=== PATIENT | male | born 1940 | race American Indian/Alaskan Native ===

== ENCOUNTER 2018-09-20 00:02 | Inpatient (IN) | payer MEDICARE ==
[2018-09-20 00:03] VITALS: BMI 25.6
--- NOTE | 2018-09-20 01:11 | ED PDOC ---
Arrival/HPI - General Chief Complaint: Wound Check Time Seen by Provider: 09/20/18 00:04 Historian: Patient - History of Present Illness Narrative History of Present Illness (Text): 09/20/18 00:45 78 year old M with a pmh of neuropathy, diabetes and stroke (4yrs ago) presents with cc of infection on great left toe w/ foul odor since tonight. 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 Avila has been monitoring the dorsal side of his great left toe for a non healing wound. Patient denies any fever or pain on his left toe. Dr. Lopes is his PCP Time/Duration: 4-6 hours Symptom Onset: Sudden Symptom Course: Unchanged Activities at Onset: Light Context: Home Past Medical History - Provider Review Nursing Documentation Reviewed: Yes - Infectious Disease Hx of Infectious Diseases: None - Tetanus Immunization Tetanus Immunization: Unknown - Cardiac Hx Hypertension: Yes - Pulmonary Hx Respiratory Disorders: No - Neurological HX Cerebrovascular Accident: Yes Other/Comment: right hand weakness - HEENT Hx Blind: Yes (right eye) - Renal Hx Renal Disorder: No - Endocrine/Metabolic Hx Diabetes Mellitus Type 2: Yes - Hematological/Oncological Hx Blood Disorders: No - Integumentary Hx Dermatological Disorder: No - Musculoskeletal/Rheumatological Hx Arthritis: Yes - Gastrointestinal Hx Gastrointestinal Disorders: No - Genitourinary/Gynecological Hx Prostate Cancer: Yes (seed implantaion) - Psychiatric Hx Psychophysiologic Disorder: No Hx Substance Use: Yes (alcohol) - Anesthesia Hx Anesthesia: Yes Hx Anesthesia Reactions: No Hx Malignant Hyperthermia: No - Suicidal Assessment Feels Threatened In Home Enviroment: No Family/Social History - Physician Review Nursing Documentation Reviewed: Yes Family/Social History: Unknown Family HX Smoking Status: Never Smoked Hx Alcohol Use: Yes Hx Substance Use: Yes (alcohol) Allergies/Home Meds Allergies/Adverse Reactions: Allergies No Known Allergies Allergy (Verified 09/20/18 00:05) Home Medications: Home Meds Medication Instructions Recorded Confirmed Celecoxib [celeBREX] 200 mg PO DAILY 11/30/14 09/20/18 Acetaminophen [Tylenol] 650 mg PO Q6H PRN 12/05/14 09/20/18 Aspirin 325 mg PO DAILY 12/05/14 09/20/18 Atorvastatin Calcium [Lipitor] 40 mg PO HS 12/05/14 09/20/18 Meclizine [Meclizine*] 25 mg PO Q8 PRN 12/05/14 09/20/18 amLODIPine [Norvasc] 2.5 mg PO DAILY 12/05/14 09/20/18 metFORMIN [glucOPHAGE] 500 mg PO BID 12/05/14 09/20/18 Review of Systems - Physician Review All systems were reviewed & negative as marked: Yes - Review of Systems Constitutional: Normal. absent: Fevers Eyes: Normal ENT: Normal Respiratory: Normal Cardiovascular: Normal Gastrointestinal: Normal Genitourinary Male: Normal Musculoskeletal: Joint Swelling (L. foot), Other (infection on left toe) Skin: Normal Neurological: Normal Endocrine: Normal Hemo/Lymphatic: Normal Psychiatric: Normal Physical Exam Vital Signs Reviewed: Yes Vital Signs Temp Pulse Resp BP Pulse Ox 09/20/18 00:10 97.7 F 91 H 16 151/79 H 98 Temperature: Afebrile Blood Pressure: Hypertensive Pulse: Tachycardic Respiratory Rate: Normal Appearance: Positive for: Well-Appearing, Non-Toxic, Comfortable Pain Distress: Mild Mental Status: Positive for: Alert and Oriented X 3 - Systems Exam Head: Present: Atraumatic, Normocephalic Pupils: Present: PERRL Extroacular Muscles: Present: EOMI Conjunctiva: Present: Normal Mouth: Present: Moist Mucous Membranes Neck: Present: Normal Range of Motion Respiratory/Chest: Present: Clear to Auscultation, Good Air Exchange. No: Respiratory Distress, Accessory Muscle Use Cardiovascular: Present: Regular Rate and Rhythm, Normal S1, S2. No: Murmurs Abdomen: No: Tenderness, Distention, Peritoneal Signs Back: Present: Normal Inspection Upper Extremity: Present: Normal Inspection. No: Cyanosis, Edema Lower Extremity: Present: Edema (Edematous swelling on L. foot), Other (Discolor of dorsum of L. great toe w/ open wound) Neurological: Present: GCS=15, Speech Normal Skin: Present: Warm, Dry. No: Rashes Psychiatric: Present: Alert, Oriented x 3, Normal Insight, Normal Concentration Medical Decision Making ED Course and Treatment: 09/20/18 01:00 Impression: 78 year old M presents with cc of infection of great left toe w/ foul odor since tonight Differential Diagnosis included but are not limited to: -- Cellulitis -- Toe abscess Plan: -- Labs -- Reassess and disposition Prior Visits: Notes and results from previous visits were reviewed. Progress Notes: - Scribe Statement The provider has reviewed the documentation as recorded by the Janet Ceballos All medical record entries made by the Scribe were at my direction and personally dictated by me. I have reviewed the chart and agree that the record accurately reflects my personal performance of the history, physical exam, medical decision making, and the department course for this patient. I have also personally directed, reviewed, and agree with the discharge instructions and disposition. Disposition/Present on Arrival - Present on Arrival Any Indicators Present on Arrival: No History of DVT/PE: No History of Uncontrolled Diabetes: Yes Urinary Catheter: No History of Decub. Ulcer: No History Surgical Site Infection Following: None - Disposition Have Diagnosis and Disposition been Completed?: Yes Diagnosis: Type 2 diabetes, controlled, with cellulitis of toe Disposition: HOSPITALIZED Disposition Time: 03:10 Patient Plan: Observation Condition: STABLE Discharge Instructions (ExitCare): Cellulitis (ED) Referrals: Diomedes Lopes, [Primary Care Provider] - Follow up with primary Forms: [employer]
[2018-09-20 01:52] LABS: HEMOGLOBIN 14.1 g/dL (14.0-18.0); MEAN CELL VOLUME 92.8 fl (80.0-105.0); MEAN CORPUSCULAR HEMOGLOBIN 30.6 pg (25.0-35.0); MEAN CORPUSCULAR HGB CONC 32.9 g/dl (31.0-37.0); MEAN PLATELET VOLUME 10.8 fl (7.0-11.0); RBC 4.61 10^6/uL (3.5-6.1); RED CELL DISTRIBUTION WIDTH 14.3 % (11.5-14.5); WHITE BLOOD COUNT 5.1 10^3/uL (4.5-11.0)
[2018-09-20 02:04] LABS: ALBUMIN 4.2 g/dL (3.0-4.8); CALCIUM 9.3 mg/dL (8.4-10.5)
[2018-09-20] MEDS ORDERED: Sodium Chloride 0.9% 500 ML IV STA (02:50)
[2018-09-20] MEDS ORDERED: Piperacillin/Tazobact 2.25gm 2.25 GM/100 ML BAG IVPB STA (02:51)
[2018-09-20] MEDS ORDERED: Vancomycin 500mg in NS 500 MG/100 ML BAG IVPB STA (02:52)
[2018-09-20 06:16] VITALS: RESP 20
[2018-09-20 08:23] LABS: BASO # 0.03 K/mm3 (0.0-2.0); BASO % 0.7 % (0.0-3.0); EOS # 0.2 (0.0-0.7); EOS % 3.7 % (1.5-5.0); HEMOGLOBIN 13.8 g/dL (14.0-18.0); LYMPH # 1.3 (1.2-3.4); LYMPH % 27.6 % (22.0-35.0); MEAN CORPUSCULAR HEMOGLOBIN 30.3 pg (25.0-35.0); MEAN CORPUSCULAR HGB CONC 33.3 g/dl (31.0-37.0); MEAN PLATELET VOLUME 10.6 fl (7.0-11.0); MONO # 0.6 (0.1-0.6); MONO % 13.3 % (1.0-6.0); RBC 4.55 10^6/uL (3.5-6.1); RED CELL DISTRIBUTION WIDTH 14.3 % (11.5-14.5); WHITE BLOOD COUNT 4.6 10^3/uL (4.5-11.0)
[2018-09-20 08:39] LABS: ALB/GLOB RATIO 1.1 (1.1-1.8); ALBUMIN 4.2 g/dL (3.0-4.8); CALCIUM 9.1 mg/dL (8.4-10.5)
--- NOTE | 2018-09-20 09:03 | CP.PCM.CON ---
History of Present Illness - History of Present Illness History of Present Illness: Podiatry consult note - Drs. Avila/Pierre 78M with pmhx of diabetes, arthritis, and peripheral neuropathy known to Dr. Avila seen and evaluated at bedside with Dr. Jay for left hallux ulceration and abrasion. States that he sees Dr. Avila at his home. States that he noticed he bumped his toe a few days ago and that it became foul smelling with some drainage coming from the wound. Denies pain to the area. Denies n/v/f/c/sob/cp today and has no other pedal complaints. PMHx: above All: NKDA Past Patient History - Infectious Disease Hx of Infectious Diseases: None - Tetanus Immunizations Tetanus Immunization: Unknown - Past Medical History & Family History Past Medical History?: Yes - Past Social History Smoking Status: Never Smoked - CARDIAC Hx Hypertension: Yes - PULMONARY Hx Respiratory Disorders: No - NEUROLOGICAL HX Cerebrovascular Accident: Yes Other/Comment: right hand weakness - HEENT Hx Blind: Yes (right eye) - RENAL Hx Chronic Kidney Disease: No - ENDOCRINE/METABOLIC Hx Diabetes Mellitus Type 2: Yes - HEMATOLOGICAL/ONCOLOGICAL Hx Blood Disorders: No - INTEGUMENTARY Hx Dermatological Problems: No - MUSCULOSKELETAL/RHEUMATOLOGICAL Hx Falls: No - GASTROINTESTINAL Hx Gastrointestinal Disorders: No - GENITOURINARY/GYNECOLOGICAL Hx Prostate Cancer: Yes (seed implantaion) - PSYCHIATRIC Hx Psychophysiologic Disorder: No Hx Substance Use: Yes (alcohol) - SURGICAL HISTORY Hx Surgeries: (prostate seeds , eye surgery both eyes) - ANESTHESIA Hx Anesthesia: Yes Hx Anesthesia Reactions: No Hx Malignant Hyperthermia: No Meds Allergies/Adverse Reactions: Allergies Allergy/AdvReac Type Severity Reaction Status Date / Time No Known Allergies Allergy Verified 09/20/18 00:05 - Medications Medications: Current Medications Acetaminophen (Tylenol 325mg Tab) 650 mg PO Q6H PRN PRN Reason: Pain, moderate (4-7) Amlodipine Besylate (Norvasc) 2.5 mg PO DAILY [facility] Aspirin (Ecotrin) 325 mg PO DAILY [facility] Atorvastatin Calcium (Lipitor) 40 mg PO HS [facility] Furosemide (Lasix) 40 mg IVP DAILY [facility] Metformin HCl (Glucophage) 500 mg PO BID [facility] Physical Exam - Constitutional Appears: Non-toxic - Head Exam Head Exam: ATRAUMATIC - Extremities Exam Additional comments: LLE focused exam VASC: DP and PT pulses faintly palpable; cap refill <3 seconds to all digits; temp gradient wnl; pedal hairgrowth absent; mild nonpitting edema noted to LE DERM: abrasion noted to the dorsal aspect of the hallux, no drainage appreciated, no pus or streaking, no depth, stable; healed ulceration present at plantar aspect of hallux, no openings, no drainage or fluctuance noted, no cellulitis or streaking, stable ORTHO: no pain on palpation of hallux wounds, arthritic contractures noted NEURO: gross and protective sensation diminished - Neurological Exam Neurological exam: Alert, Oriented x3 - Psychiatric Exam Psychiatric exam: Normal Affect, Normal Mood Results - Vital Signs Recent Vital Signs: Last Vital Signs Temp 98.3 F 09/20/18 07:30 Pulse 88 09/20/18 07:30 Resp 20 09/20/18 07:30 BP 156/83 H 09/20/18 07:30 Pulse Ox 97 09/20/18 07:30 - Labs Result Diagrams: 09/20/18 08:10 09/20/18 08:10 Labs: Laboratory Results - last 24 hr 09/20/18 09/20/18 09/20/18 01:19 01:19 07:15 WBC 5.1 RBC 4.61 Hgb 14.1 Hct 42.8 MCV 92.8 MCH 30.6 MCHC 32.9 RDW 14.3 Plt Count 222 MPV 10.8 Neut % (Auto) Lymph % (Auto) [place] % (Auto) Eos % (Auto) Baso % (Auto) Lymph # (Auto) [place] # (Auto) Eos # (Auto) Baso # (Auto) Absolute Neuts (auto) Sodium 140 Potassium 4.3 Chloride 100 Carbon Dioxide 30 Anion Gap 14 BUN 32 H Creatinine 1.8 H Est GFR ( Amer) 44 Est GFR (Non-Af Amer) 37 POC Glucose (mg/dL) 80 Random Glucose 101 Calcium 9.3 Total Bilirubin 0.5 AST 29 ALT 12 Alkaline Phosphatase 70 Total Protein 8.2 Albumin 4.2 Globulin 4.0 Albumin/Globulin Ratio 1.0 L 09/20/18 09/20/18 08:10 08:10 WBC 4.6 RBC 4.55 Hgb 13.8 L Hct 41.4 L MCV 91.0 MCH 30.3 MCHC 33.3 RDW 14.3 Plt Count 197 MPV 10.6 Neut % (Auto) 54.7 Lymph % (Auto) 27.6 [place] % (Auto) 13.3 H Eos % (Auto) 3.7 Baso % (Auto) 0.7 Lymph # (Auto) 1.3 [place] # (Auto) 0.6 Eos # (Auto) 0.2 Baso # (Auto) 0.03 Absolute Neuts (auto) 2.52 Sodium 141 Potassium 3.8 Chloride 102 Carbon Dioxide 31 Anion Gap 11 BUN 28 H Creatinine 1.9 H Est GFR ( Amer) 42 Est GFR (Non-Af Amer) 34 POC Glucose (mg/dL) Random Glucose 84 Calcium 9.1 Total Bilirubin 0.4 AST 23 ALT 11 Alkaline Phosphatase 74 Total Protein 7.9 Albumin 4.2 Globulin 3.7 Albumin/Globulin Ratio 1.1 Assessment & Plan - Assessment and Plan (Free Text) Assessment: 78M with left hallux 1) dorsal abrasion, stable 2) plantar healed ulceration Plan: Patient seen and evaluated with Dr. Pierre RODRIGUEZ, absent leukocytosis X-ray reviewed - arthritic changes noted, no bony erosions appreciated MRI left foot ordered Arterial duplex b/l ordered Foam dressing applied to dorsal abrasion Aquaphor ordered for xerosis Will following imaging and studies Thank you for the consult, will continue to follow - Date & Time Date: 09/20/18 Time: 09:09
[2018-09-20] MEDS: Aspirin 325 mg EC Tablets PO SCH (09:52)
[2018-09-20] MEDS: Petrolatum-Mineral Oil Oint (100gm) TOP SCH ×3 (10:27→21:39)
--- NOTE | 2018-09-20 11:08 | RAD ---
Date of service: 09/20/2018 PROCEDURE: Left Foot Radiographs. HISTORY: pain/infection great toe/foot COMPARISON: None. TECHNIQUE: 3 views obtained. FINDINGS: BONES: Normal. No fracture. No evidence of osteomyelitis JOINTS: Normal. SOFT TISSUES: Normal. OTHER FINDINGS: None. IMPRESSION: No evidence of osteomyelitis
--- NOTE | 2018-09-20 12:11 | CP.PCM.CON ---
History of Present Illness - History of Present Illness History of Present Illness: PGY-[address] Asif's service 78 yo male with PMH of diabetes, diabetic neuropathy, HTN, osteoarthritis and stroke (4yrs ago) presented with infection on great left toe with foul odor. 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 Avila has been monitoring the dorsal side of his great left toe for a non healing wound. Patient states that he recently had blood work done by his PMD and was told his thyroid level was abnormal. Patient reports dry skin but denies any chest pain, palpitation, sob, abd pain, fatigue, headache, dizziness, cold or heat intolerance. Patient denies any fever or pain on his left toe. He states his diabetes is controlled with metformin 500mg daily. 12 point ROS negative except at stated. 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 allergy: NKDA Review of Systems - Review of Systems All systems: reviewed and no additional remarkable complaints except Past Patient History - Infectious Disease Hx of Infectious Diseases: None - Tetanus Immunizations Tetanus Immunization: Unknown - Past Medical History & Family History Past Medical History?: Yes - Past Social History Smoking Status: Never Smoked - CARDIAC Hx Hypertension: Yes - PULMONARY Hx Respiratory Disorders: No - NEUROLOGICAL HX Cerebrovascular Accident: Yes Other/Comment: right hand weakness - HEENT Hx Blind: Yes (right eye) - RENAL Hx Chronic Kidney Disease: No - ENDOCRINE/METABOLIC Hx Diabetes Mellitus Type 2: Yes - HEMATOLOGICAL/ONCOLOGICAL Hx Blood Disorders: No - INTEGUMENTARY Hx Dermatological Problems: No - MUSCULOSKELETAL/RHEUMATOLOGICAL Hx Falls: No - GASTROINTESTINAL Hx Gastrointestinal Disorders: No - GENITOURINARY/GYNECOLOGICAL Hx Prostate Cancer: Yes (seed implantaion) - PSYCHIATRIC Hx Psychophysiologic Disorder: No Hx Substance Use: Yes (alcohol) - SURGICAL HISTORY Hx Surgeries: (prostate seeds , eye surgery both eyes) - ANESTHESIA Hx Anesthesia: Yes Hx Anesthesia Reactions: No Hx Malignant Hyperthermia: No Meds Allergies/Adverse Reactions: Allergies Allergy/AdvReac Type Severity Reaction Status Date / Time No Known Allergies Allergy Verified 09/20/18 00:05 - Medications Medications: Current Medications Acetaminophen (Tylenol 325mg Tab) 650 mg PO Q6H PRN PRN Reason: Pain, moderate (4-7) Amlodipine Besylate (Norvasc) 2.5 mg PO DAILY [facility] Last Admin: 09/20/18 09:53 Dose: 2.5 mg Aspirin (Ecotrin) 325 mg PO DAILY [facility] Last Admin: 09/20/18 09:52 Dose: 325 mg Atorvastatin Calcium (Lipitor) 40 mg PO [facility] Furosemide (Lasix) 40 mg IVP DAILY [facility] Last Admin: 09/20/18 09:53 Dose: 40 mg Metformin HCl (Glucophage) 500 mg PO BID [facility] Last Admin: 09/20/18 09:53 Dose: 500 mg Multi-Ingredient Ointment (Hydrophor Oint) 0 gm TOP Q6H [facility] Last Admin: 09/20/18 10:27 Dose: 1 applic Physical Exam - Constitutional Appears: Well, No Acute Distress - Head Exam Head Exam: ATRAUMATIC, NORMAL INSPECTION, NORMOCEPHALIC - Eye Exam Eye Exam: EOMI, PERRL - ENT Exam ENT Exam: Mucous Membranes Moist - Neck Exam Neck exam: Positive for: Full Rom, Normal Inspection. Negative for: Tenderness, Thyromegaly - Respiratory Exam Respiratory Exam: Clear to Auscultation Bilateral, NORMAL BREATHING PATTERN. absent: Chest Wall Tenderness, Decreased Breath Sounds, Rales, Rhonchi, Wheezes, Respiratory Distress - Cardiovascular Exam Cardiovascular Exam: REGULAR RHYTHM, +S1, +S2. absent: Bradycardia, Tachycardia, Diastolic murmur, Systolic Murmur - GI/Abdominal Exam GI & Abdominal Exam: Normal Bowel Sounds, Soft. absent: Diminished Bowel Sounds, Distended, Firm, Tenderness - Neurological Exam Neurological exam: Alert, Oriented x3 - Psychiatric Exam Psychiatric exam: Normal Affect, Normal Mood Results - Vital Signs Recent Vital Signs: Last Vital Signs Temp 98.3 F 09/20/18 07:30 Pulse 88 09/20/18 07:30 Resp 20 09/20/18 07:30 BP 156/83 H 09/20/18 09:53 Pulse Ox 97 09/20/18 07:30 - Labs Result Diagrams: 09/21/18 06:00 09/21/18 06:00 Labs: Laboratory Results - last 24 hr 09/20/18 09/20/18 09/20/18 01:19 01:19 07:15 WBC 5.1 RBC 4.61 Hgb 14.1 Hct 42.8 MCV 92.8 MCH 30.6 MCHC 32.9 RDW 14.3 Plt Count 222 MPV 10.8 Neut % (Auto) Lymph % (Auto) [place] % (Auto) Eos % (Auto) Baso % (Auto) Lymph # (Auto) [place] # (Auto) Eos # (Auto) Baso # (Auto) Absolute Neuts (auto) Sodium 140 Potassium 4.3 Chloride 100 Carbon Dioxide 30 Anion Gap 14 BUN 32 H Creatinine 1.8 H Est GFR ( Amer) 44 Est GFR (Non-Af Amer) 37 POC Glucose (mg/dL) 80 Random Glucose 101 Calcium 9.3 Total Bilirubin 0.5 AST 29 ALT 12 Alkaline Phosphatase 70 Total Protein 8.2 Albumin 4.2 Globulin 4.0 Albumin/Globulin Ratio 1.0 L 09/20/18 09/20/18 09/20/18 08:10 08:10 12:02 WBC 4.6 RBC 4.55 Hgb 13.8 L Hct 41.4 L MCV 91.0 MCH 30.3 MCHC 33.3 RDW 14.3 Plt Count 197 MPV 10.6 Neut % (Auto) 54.7 Lymph % (Auto) 27.6 [place] % (Auto) 13.3 H Eos % (Auto) 3.7 Baso % (Auto) 0.7 Lymph # (Auto) 1.3 [place] # (Auto) 0.6 Eos # (Auto) 0.2 Baso # (Auto) 0.03 Absolute Neuts (auto) 2.52 Sodium 141 Potassium 3.8 Chloride 102 Carbon Dioxide 31 Anion Gap 11 BUN 28 H Creatinine 1.9 H Est GFR ( Amer) 42 Est GFR (Non-Af Amer) 34 POC Glucose (mg/dL) 93 Random Glucose 84 Calcium 9.1 Total Bilirubin 0.4 AST 23 ALT 11 Alkaline Phosphatase 74 Total Protein 7.9 Albumin 4.2 Globulin 3.7 Albumin/Globulin Ratio 1.1 Assessment & Plan - Assessment and Plan (Free Text) Assessment: 78 yo male with PMH of diabetes, diabetic neuropathy, HTN, osteoarthritis and stroke (4yrs ago) presented with infection on great left toe, endocrinology consulted for possible thyroid disorder. Currently patient has no complaints. Will will order TSH and T4. We will add medications if his levels are abnormal. Case discussed with attending, Dr. Asif
[2018-09-20 13:50] LABS: FREE T4 1.54 ng/dL (0.78-2.19)
--- NOTE | 2018-09-20 17:13 | CARD ---
APPROVED REPORT Date of service: 09/20/2018 EKG Measurement Heart [id number] <Conclusion> Sinus rhythm with 1st degree AV block Right bundle branch block Abnormal ECG
--- NOTE | 2018-09-20 19:33 | CON ---
DATE OF CONSULTATION: 09/20/2018 ENDOCRINOLOGY CONSULTATION ROOM: 368. HISTORY OF PRESENT ILLNESS: This is a 78-year-old male with known history of type 2 diabetes and underlying polyneuropathy, presenting here with a left big toe or hallux infection and associated cellulitis and is now being referred for endocrine evaluation of a possible thyroid dysfunction as the patient alleges that he was told that he has some kind of thyroid condition, but is currently not on any thyroid medications as noted. PAST MEDICAL HISTORY As mentioned above, history of type 2 diabetes on metformin given as 500 mg b.i.d., history of hypertension and dyslipidemia, history of diabetic retinopathy and polyneuropathy with occasional painful paresthesias nocturnally. He also has diabetic nephropathy with underlying chronic kidney disease as noted. History of coronary artery disease and peripheral arterial disease and vasculopathy. He also has a previous cerebrovascular disease with no apparent residual weakness as noted. FAMILY HISTORY: Positive for diabetes and hypertension. SOCIAL HISTORY: The patient has a supportive family. No known substance use. REVIEW OF SYSTEMS: Admits to generalized body weakness with easy fatigability and tiredness and suboptimal energy level. Also admits to bifrontal headaches with occasional visual blurring as noted. No chest pains or palpitations or PND since oral intake has been variable with nausea and dyspepsia and vague upper abdominal pains. No recent alterations of bowel and urinary patterns. PHYSICAL EXAMINATION: GENERAL: This is an average built male, in no apparent distress. VITAL SIGNS: Blood pressure of 150/90, pulse of 100 beats per minute regular, temperature 98, respirations 20, height is 5 feet 8 inches, weight is 185 pounds. HEENT: Head, normocephalic. Eyes, anicteric with pink conjunctivae. Fundoscopy not possible at this time. Ears, nose, and throat, otherwise normal. NECK: Supple. Thyroid gland is normal size. No carotid bruits or cervical adenopathy. CARDIOPULMONARY: Some adynamic precordium. S1, S2 are rapid and regular. LUNGS: Clear to auscultation. ABDOMEN: Flat, soft with positive bowel sounds. EXTREMITIES: There is a nonhealing left hallux ulceration with a bloody exudate and a malodorous smell as noted. Pulses are diminished peripherally. LABORATORY DATA: His chemistries showed a BUN of 28, sodium 141, potassium 3.8, chloride 102, CO2 of 31, glucose 93 and creatinine 1.9. His TSH has been reported as 3.90 with a free T4 of 1.54. ASSESSMENT: This is a 78-year-old male with subclinical hypothyroidism and really remains clinically euthyroid and with his advanced age it is quite common to see this kind of abnormal thyroid indices. He most likely has underlying autoimmune thyroiditis with no overt palpable thyroid nodules or thyromegaly at this time. He also has type 2 diabetes on oral hypoglycemic therapy and would be quite concerned that his GFR is now close to 30 and is actually reported as 34, but is now close to 30, and again with his advanced age and elevated creatinine levels with impaired GFRs, it would be cautious to give metformin therapy at this time. He also has diabetic microvascular complications of retinopathy, polyneuropathy and nephropathy with underlying chronic kidney disease. Moreover, he also has diabetic macrovascular complications of cerebrovascular disease, coronary artery disease, and peripheral arterial disease and vasculopathy with a nonhealing left hallux ulceration as noted with underlying cellulitis otherwise. PLAN OF MANAGEMENT: We will hold off the initiation of levothyroxine replacement therapy at this time considering that this is only a very mild subclinical hypothyroid condition, and it is quite common in patients with advanced age as noted. However, we will repeat a TSH for tomorrow morning and a total T4, which will give us more guidance as to the possible severity of his underlying hypothyroid condition. We will obtain a thyroid peroxidase and thyroglobulin antibody to confirm and indicate the presence of thyroid autoimmunity, and if it is positive, then we will consider the addition of the aforementioned as indicated. We will follow this. Ginette Asif MD
--- NOTE | 2018-09-20 19:35 | HP ---
DATE OF EXAM: 09/20/2018 HISTORY OF PRESENT ILLNESS: I know him very well from house calls, it is very difficult for him to walk and to get out due to his arthritis and contractures. Apparently, he has a toe issue. He is a 78-year-old man who is presently with a left first toe callus and possible ulcer infection with foul odor. He has been monitored by the fruit harvest worker from the outpatient for nonhealing wound. There is no pain. PAST MEDICAL HISTORY: He has neuropathy, diabetes, CVA, osteoarthritis, toe infections, ulcers, and hypertension. He has right hand weakness and contracture. He has blindness in the right eye. He has got diabetes. He has arthritis. He has a seed implantation for prostate cancer. SOCIAL HISTORY: He does drink some alcohol every now and then. No smoking. Occasional alcohol. No drugs. FAMILY HISTORY: No known family history. ALLERGIES: NO KNOWN DRUG ALLERGIES. MEDICATIONS: Celebrex, Tylenol, aspirin, Lipitor, meclizine, Norvasc, and Glucophage. REVIEW OF SYSTEMS: No acute vision or hearing changes. No sore throat. No chest pain or palpitations. No shortness of breath or cough. No abdominal pain, nausea, vomiting, constipation, or diarrhea. No problems urinating. The left first toe has got a little bit of infection. He said he banged it. Otherwise, the skin is okay except for the left first toe. He has got some peripheral neuropathy. He has difficulty with contractures of his hand. PHYSICAL EXAMINATION: VITAL SIGNS: He has a 97.7 temperature, 91 pulse, 16 respiratory rate, 151/79 blood pressure, and 90% O2 sat. GENERAL: He is well-appearing, comfortable, alert, and oriented x3. HEENT: Head; atraumatic and normocephalic. Extraocular muscles are intact. Pupils are equal and reactive to light. Throat is moist. NECK: Supple. HEART: Regular rate. Normal S1 and S2. LUNGS: Decreased breath sounds, but clear to auscultation bilaterally. ABDOMEN: Soft and nontender. Positive bowel sounds. No guarding. No rebound. No CVA tenderness. EXTREMITIES: He has got some contractures of his arms and his legs, difficult for him to get around. He has a left great toe open wound with also callus. NEUROLOGIC: GCS is 15. Cranial nerves II through XII grossly intact. Alert and oriented x3. SKIN: Otherwise intact except for the left first toe. LYMPHS: Thyroid midline. No palpable appreciable lymphadenopathy. ASSESSMENT AND PLAN: He has some thyroid questions. He wants to talk to the welder tech. He will see a preventive maintenance engineer, it has been difficult for him to get out of the house due to his physical ability, not be able to walk, it is difficult for him, so I called the preventive maintenance engineer Infectious Disease for IV antibiotics, Podiatry, I will change it to an inpatient. He is going to need to be a longer than two overnights. He has got odor and some ulcer of the left first toe and is here for a left first toe ulcer chronic, nonhealing; diabetes; osteoarthritis; hypertension; and he has got some thyroid issues. Diomedes Lopes DO [employer]
--- NOTE | 2018-09-20 19:36 | CON ---
DATE OF CONSULTATION: 09/20/2018 CARDIOLOGY CONSULTATION HISTORY: The patient is a 78-year-old male, who I was asked to do a cardiac evaluation. PAST MEDICAL HISTORY: The patient's past medical history is notable for hypertension, diabetes mellitus, as well as hypercholesterolemia, who presented with cellulitis of the lower extremities. The patient has had visual disability for a while now. He denies previous history of cardiac disease. No history of myocardial infarction. No angina. SOCIAL HISTORY: The patient denies smoking. REVIEW OF SYSTEMS: Fourteen-point review of systems is reviewed in detail. The patient denies angina, denies shortness of breath. He does admit to occasional pedal edema. No orthopnea. No PND. No previous myocardial infarction. No family history for CAD. PHYSICAL EXAMINATION: VITAL SIGNS: Blood pressure is 156/83, the heart rate is in the 80s. NECK: Negative JVD. LUNGS: Without rales. CARDIAC: Heart rate S1, S2. EXTREMITIES: Trace edema in the lower extremities bilaterally. EKG is not available. LABORATORY DATA: Hemoglobin is 13.8. BUN and creatinine are 28 and 1.9. IMPRESSION: 1. Cellulitis of the lower extremities. 2. Diabetes mellitus. 3. Hypertension. 4. Hypercholesterolemia. 5. Renal insufficiency. 6. Visual disability. PLAN: Given these findings, we will obtain an EKG. In addition, we will obtain an echocardiogram to evaluate his LV function. Augusto Rodriguez MD
--- NOTE | 2018-09-20 19:50 | US ---
PROCEDURE: Lower extremity JOSE exam HISTORY: Peripheral vascular disease with pain and ulceration. Diabetes.. PHYSICIAN(S): Augusto Owen MD. FINDINGS: The resting JOSE's are normal: right, 1.01and left, 1.08. The brachial systolic pressures are symmetric. The high thigh pressures and waveforms are relatively normal. The calf PVR waveforms augment normally. No significant gradients are noted across the thighs. The ankle and metatarsal waveforms are relatively normal and symmetric. No significant pressure gradients are noted across the lower legs. IMPRESSION: 1. Normal JOSE and PVR examination at rest.
[2018-09-21] MEDS: Petrolatum-Mineral Oil Oint (100gm) TOP SCH ×2 (04:22→11:45)
[2018-09-21 06:54] LABS: HEMOGLOBIN 13.3 g/dL (14.0-18.0); MEAN CELL VOLUME 91.1 fl (80.0-105.0); MEAN CORPUSCULAR HEMOGLOBIN 29.7 pg (25.0-35.0); MEAN CORPUSCULAR HGB CONC 32.6 g/dl (31.0-37.0); MEAN PLATELET VOLUME 10.9 fl (7.0-11.0); RBC 4.48 10^6/uL (3.5-6.1); RED CELL DISTRIBUTION WIDTH 14.2 % (11.5-14.5); WHITE BLOOD COUNT 4.3 10^3/uL (4.5-11.0)
[2018-09-21 07:18] LABS: ALBUMIN 3.7 g/dL (3.0-4.8); CALCIUM 9.1 mg/dL (8.4-10.5)
[2018-09-21 08:15] VITALS: PULSE 78; TEMP 97.5; O2SAT 95
--- NOTE | 2018-09-21 08:44 | CP.PCM.PN ---
Subjective - Date & Time of Evaluation Date of Evaluation: 09/21/18 Time of Evaluation: 08:38 - Subjective Subjective: Podiatry progress note - Drs. Avila/Pierre 78M seen and evaluated at bedside this AM with Dr. Jay. Resting comfortably, denies acute events overnight. Denies pain to LE. Denies n/v/f/c/sob/cp. Dressing appears clean and dry. Objective - Vital Signs/Intake and Output Vital Signs (last 24 hours): Temp Pulse Resp BP Pulse Ox 97.5 F L 78 20 114/69 95 09/21/18 08:14 09/21/18 08:14 09/21/18 08:14 09/21/18 08:14 09/21/18 08:14 Intake and Output: 09/21/18 09/21/18 06:59 18:59 Intake Total 1560 Output Total 750 Balance 810 - Medications Medications: Current Medications Acetaminophen (Tylenol 325mg Tab) 650 mg PO Q6H PRN PRN Reason: Pain, moderate (4-7) Amlodipine Besylate (Norvasc) 2.5 mg PO DAILY [facility] Last Admin: 09/20/18 09:53 Dose: 2.5 mg Aspirin (Ecotrin) 325 mg PO DAILY [facility] Last Admin: 09/20/18 09:52 Dose: 325 mg Atorvastatin Calcium (Lipitor) 40 mg PO HS [facility] Last Admin: 09/20/18 21:38 Dose: 40 mg Furosemide (Lasix) 40 mg IVP DAILY [facility] Last Admin: 09/20/18 09:53 Dose: 40 mg Ceftaroline Fosamil 400 mg/ (Sodium Chloride) 100 mls @ 100 mls/hr IVPB Q12 [facility]; Protocol Stop: 09/28/18 22:01 Last Admin: 09/20/18 21:38 Dose: 100 mls/hr Multi-Ingredient Ointment (Hydrophor Oint) 0 gm TOP Q6H [facility] Last Admin: 09/21/18 04:22 Dose: Not Given Repaglinide (Prandin) 0.5 mg PO AC [facility] Last Admin: 09/21/18 06:31 Dose: 0.5 mg - Labs Labs: 09/21/18 06:00 09/21/18 06:00 - Constitutional Appears: Non-toxic - Head Exam Head Exam: ATRAUMATIC - Extremities Exam Additional comments: LLE focused exam VASC: DP and PT pulses faintly palpable; cap refill <3 seconds to all digits; temp gradient wnl; pedal hairgrowth absent; mild nonpitting edema noted to LE DERM: abrasion noted to the dorsal aspect of the hallux, no drainage appreciated, no pus or streaking, no depth, stable; healed ulceration present at plantar aspect of hallux, no openings, no drainage or fluctuance noted, no cellulitis or streaking, stable ORTHO: no pain on palpation of hallux wounds, arthritic contractures noted NEURO: gross and protective sensation diminished - Neurological Exam Neurological Exam: Alert, Awake, Oriented x3 - Psychiatric Exam Psychiatric exam: Normal Affect Assessment and Plan - Assessment and Plan (Free Text) Assessment: 78M with left hallux 1) dorsal abrasion, stable 2) plantar healed ulceration Plan: Patient seen and evaluated with Dr. Jay VSFranchesca, absent leukocytosis X-ray reviewed - arthritic changes noted, no bony erosions appreciated MRI left foot taken - read pending Arterial duplex b/l - normal JOSE/PVR examination at rest Foam dressing applied to dorsal abrasion Nursing - please apply aquaphor to LE QD for dry skin Upon discharge will be followed by Dr. Avila at home Will continue to follow, stable from podiatry standpoint pending MRI result
--- NOTE | 2018-09-21 10:49 | CP.PCM.CON ---
<Mitchell Jc - Last Filed: 09/21/18 11:15> History of Present Illness - History of Present Illness History of Present Illness: Mitchell Jc D.O. PGY-3, Internal Medicine Resident, Infectious Disease Consultation Note 78 year old male with a PMH of DM with neuropathy, HTN, CVA with right sided deficits who presented after hitting his left toe. Infectious disease con sultation was requested for evaluation. Patient was seen and examined at bedside while resting comfortably. Patient relates how he is able to get around with a walker after his CVA and sometimes has difficulty. Patient states that he "banged" the toe against furniture very hard on accident. Since then he had a lot of pain. States that his put a bandaid on it and then the next day he noticed a foul odor from the toe and got concerned. Patient at this time states that he doesn't have as much discomfort but is worried about developing an ulcer. Denies any fevers, chills, nausea, vomiting, diarrhea, constipation, headache, SOB, or CP. Review of Systems - Review of Systems All systems: reviewed and no additional remarkable complaints except (as per HPI) Past Patient History - Infectious Disease Hx of Infectious Diseases: None - Tetanus Immunizations Tetanus Immunization: Unknown - Past Medical History & Family History Past Medical History?: Yes - Past Social History Smoking Status: Never Smoked - CARDIAC Hx Hypertension: Yes - PULMONARY Hx Respiratory Disorders: No - NEUROLOGICAL HX Cerebrovascular Accident: Yes Other/Comment: right hand weakness - HEENT Hx Blind: Yes (right eye) - RENAL Hx Chronic Kidney Disease: No - ENDOCRINE/METABOLIC Hx Diabetes Mellitus Type 2: Yes - HEMATOLOGICAL/ONCOLOGICAL Hx Blood Disorders: No - INTEGUMENTARY Hx Dermatological Problems: No - MUSCULOSKELETAL/RHEUMATOLOGICAL Hx Falls: No - GASTROINTESTINAL Hx Gastrointestinal Disorders: No - GENITOURINARY/GYNECOLOGICAL Hx Prostate Cancer: Yes (seed implantaion) - PSYCHIATRIC Hx Psychophysiologic Disorder: No Hx Substance Use: Yes (alcohol) - SURGICAL HISTORY Hx Surgeries: (prostate seeds , eye surgery both eyes) - ANESTHESIA Hx Anesthesia: Yes Hx Anesthesia Reactions: No Hx Malignant Hyperthermia: No Meds Allergies/Adverse Reactions: Allergies Allergy/AdvReac Type Severity Reaction Status Date / Time No Known Allergies Allergy Verified 09/20/18 00:05 - Medications Medications: Current Medications Acetaminophen (Tylenol 325mg Tab) 650 mg PO Q6H PRN PRN Reason: Pain, moderate (4-7) Amlodipine Besylate (Norvasc) 2.5 mg PO DAILY [facility] Last Admin: 09/20/18 09:53 Dose: 2.5 mg Aspirin (Ecotrin) 325 mg PO DAILY [facility] Last Admin: 09/20/18 09:52 Dose: 325 mg Atorvastatin Calcium (Lipitor) 40 mg PO HS [facility] Last Admin: 09/20/18 21:38 Dose: 40 mg Furosemide (Lasix) 40 mg IVP DAILY [facility] Last Admin: 09/20/18 09:53 Dose: 40 mg Ceftaroline Fosamil 400 mg/ (Sodium Chloride) 100 mls @ 100 mls/hr IVPB Q12 [facility]; Protocol Stop: 09/28/18 22:01 Last Admin: 09/20/18 21:38 Dose: 100 mls/hr Multi-Ingredient Ointment (Hydrophor Oint) 0 gm TOP Q6H [facility] Last Admin: 09/21/18 04:22 Dose: Not Given Repaglinide (Prandin) 0.5 mg PO AC [facility] Last Admin: 09/21/18 06:31 Dose: 0.5 mg Physical Exam - Constitutional Appears: Non-toxic, No Acute Distress, Chronically Ill - Head Exam Head Exam: NORMOCEPHALIC - Eye Exam Eye Exam: EOMI. absent: Scleral icterus - ENT Exam ENT Exam: Mucous Membranes Moist - Neck Exam Neck exam: Positive for: Normal Inspection - Respiratory Exam Respiratory Exam: Clear to Auscultation Bilateral. absent: Rales, Rhonchi, Wheezes - Cardiovascular Exam Cardiovascular Exam: +S1, +S2 - GI/Abdominal Exam GI & Abdominal Exam: Normal Bowel Sounds, Soft. absent: Tenderness - Extremities Exam Additional comments: left big toe with small about 5mm round excoriated skin over the inter-tarsal joint just posterior to the nail with small amount of discharge, re-covered with optifoam - Neurological Exam Neurological exam: Alert, Oriented x3 - Skin Skin Exam: Warm Results - Vital Signs Recent Vital Signs: Last Vital Signs Temp 97.5 F L 09/21/18 08:14 Pulse 78 09/21/18 08:14 Resp 20 09/21/18 08:14 BP 114/69 09/21/18 08:14 Pulse Ox 95 09/21/18 08:14 - Labs Result Diagrams: 09/21/18 06:00 09/21/18 06:00 Labs: Laboratory Results - last 24 hr 09/20/18 09/20/18 09/20/18 12:02 13:10 16:11 WBC RBC Hgb Hct MCV MCH MCHC RDW Plt Count MPV Sodium Potassium Chloride Carbon Dioxide Anion Gap BUN Creatinine Est GFR ( Amer) Est GFR (Non-Af Amer) POC Glucose (mg/dL) 93 80 Random Glucose Calcium Total Bilirubin AST ALT Alkaline Phosphatase Total Protein Albumin Globulin Albumin/Globulin Ratio Free T4 1.54 Thyroxine (T4) TSH 3rd Generation 3.90 09/20/18 09/21/18 09/21/18 21:09 01:46 02:46 WBC RBC Hgb Hct MCV MCH MCHC RDW Plt Count MPV Sodium Potassium Chloride Carbon Dioxide Anion Gap BUN Creatinine Est GFR ( Amer) Est GFR (Non-Af Amer) POC Glucose (mg/dL) 73 72 114 H Random Glucose Calcium Total Bilirubin AST ALT Alkaline Phosphatase Total Protein Albumin Globulin Albumin/Globulin Ratio Free T4 Thyroxine (T4) TSH 3rd Generation 09/21/18 09/21/18 09/21/18 06:00 06:00 06:00 WBC 4.3 L RBC 4.48 Hgb 13.3 L Hct 40.8 L MCV 91.1 MCH 29.7 MCHC 32.6 RDW 14.2 Plt Count 210 MPV 10.9 Sodium 139 Potassium 3.9 Chloride 102 Carbon Dioxide 30 Anion Gap 12 BUN 26 H Creatinine 1.8 H Est GFR ( Amer) 44 Est GFR (Non-Af Amer) 37 POC Glucose (mg/dL) Random Glucose 66 L Calcium 9.1 Total Bilirubin 0.6 AST 28 ALT 13 Alkaline Phosphatase 65 Total Protein 7.4 Albumin 3.7 Globulin 3.6 Albumin/Globulin Ratio 1.0 L Free T4 Thyroxine (T4) 9.1 TSH 3rd Generation 3.67 09/21/18 07:22 WBC RBC Hgb Hct MCV MCH MCHC RDW Plt Count MPV Sodium Potassium Chloride Carbon Dioxide Anion Gap BUN Creatinine Est GFR ( Amer) Est GFR (Non-Af Amer) POC Glucose (mg/dL) 67 Random Glucose Calcium Total Bilirubin AST ALT Alkaline Phosphatase Total Protein Albumin Globulin Albumin/Globulin Ratio Free T4 Thyroxine (T4) TSH 3rd Generation Assessment & Plan - Assessment and Plan (Free Text) Assessment: 78 year old male with a PMH of DM with neuropathy, HTN, CVA with right sided deficits who presented after hitting his left toe. Infectious disease consultation was requested for evaluation. Plan: Left toe dorsal abrasion DM with neuropathy HTN CVA with right sided deficits At high risk for infection given diabetic status Afebrile No leukocytosis BCx negative 2/2 day 1 Podiatry following, note reviewed and appreciated For foot MRI today Empirically started on ceftaroline We will follow with you Patient was seen and examined and case will be discussed with attending physician Thank you for the pleasure participating in the care of this interesting patient - Date & Time Date: 09/21/18 Time: 07:00 <Larry Rizo - Last Filed: 09/21/18 20:00> Results - Vital Signs Recent Vital Signs: Last Vital Signs Temp 97.5 F L 09/21/18 16:19 Pulse 78 09/21/18 16:19 Resp 20 09/21/18 16:19 BP 114/69 09/21/18 16:19 Pulse Ox 95 09/21/18 16:19 - Labs Result Diagrams: 09/21/18 06:00 09/21/18 06:00 Labs: Laboratory Results - last 24 hr 09/20/18 09/21/18 09/21/18 21:09 01:46 02:46 WBC RBC Hgb Hct MCV MCH MCHC RDW Plt Count MPV Sodium Potassium Chloride Carbon Dioxide Anion Gap BUN Creatinine Est GFR ( Amer) Est GFR (Non-Af Amer) POC Glucose (mg/dL) 73 72 114 H Random Glucose Hemoglobin A1c Calcium Total Bilirubin AST ALT Alkaline Phosphatase Total Protein Albumin Globulin Albumin/Globulin Ratio Thyroxine (T4) TSH 3rd Generation 09/21/18 09/21/18 09/21/18 06:00 06:00 06:00 WBC 4.3 L RBC 4.48 Hgb 13.3 L Hct 40.8 L MCV 91.1 MCH 29.7 MCHC 32.6 RDW 14.2 Plt Count 210 MPV 10.9 Sodium 139 Potassium 3.9 Chloride 102 Carbon Dioxide 30 Anion Gap 12 BUN 26 H Creatinine 1.8 H Est GFR ( Amer) 44 Est GFR (Non-Af Amer) 37 POC Glucose (mg/dL) Random Glucose 66 L Hemoglobin A1c 6.8 H Calcium 9.1 Total Bilirubin 0.6 AST 28 ALT 13 Alkaline Phosphatase 65 Total Protein 7.4 Albumin 3.7 Globulin 3.6 Albumin/Globulin Ratio 1.0 L Thyroxine (T4) TSH 3rd Generation 09/21/18 09/21/18 09/21/18 06:00 07:22 11:37 WBC RBC Hgb Hct MCV MCH MCHC RDW Plt Count MPV Sodium Potassium Chloride Carbon Dioxide Anion Gap BUN Creatinine Est GFR ( Amer) Est GFR (Non-Af Amer) POC Glucose (mg/dL) 67 75 Random Glucose Hemoglobin A1c Calcium Total Bilirubin AST ALT Alkaline Phosphatase Total Protein Albumin Globulin Albumin/Globulin Ratio Thyroxine (T4) 9.1 TSH 3rd Generation 3.67 09/21/18 16:12 WBC RBC Hgb Hct MCV MCH MCHC RDW Plt Count MPV Sodium Potassium Chloride Carbon Dioxide Anion Gap BUN Creatinine Est GFR ( Amer) Est GFR (Non-Af Amer) POC Glucose (mg/dL) 82 Random Glucose Hemoglobin A1c Calcium Total Bilirubin AST ALT Alkaline Phosphatase Total Protein Albumin Globulin Albumin/Globulin Ratio Thyroxine (T4) TSH 3rd Generation Attending/Attestation - Attestation I have personally seen and examined this patient.: Yes I have fully participated in the care of the patient.: Yes I have reviewed all pertinent clinical information: Yes
--- NOTE | 2018-09-21 11:35 | MRI ---
Date of service: 09/21/2018 PROCEDURE: MRI of the left foot without contrast HISTORY: left hallux diabetic ulceration COMPARISON: TECHNIQUE: MRI of the left foot was performed in multiple planes using multiple pulse sequences. FINDINGS: There is minimal soft tissue edema in the big toe. There is no evidence of associated osteomyelitis. There is no marrow edema. The remaining toes are also unremarkable. The metatarsals are normal. There is subcutaneous edema over the dorsum of the foot. This could represent passive edema or cellulitis. IMPRESSION: No evidence of osteomyelitis
[2018-09-21] MEDS: Aspirin 325 mg EC Tablets PO SCH (11:40)
--- NOTE | 2018-09-21 12:26 | PN ---
DATE: 09/21/2018 SUBJECTIVE: He is resting comfortably in bed. He wants his walker there, so he can get back and forth to the bathroom. He is very comfortable but did not get out of bed despite his physical limitations. He does not want to lose that strength either. He is on Ceftalin IV, Ecotrin, ointment, Lasix, Lipitor, Norvasc, Prandin, and Tylenol. The metformin was changed to Prandin due to his elevated BUN and creatinine by Endocrinology, which is reasonable. PHYSICAL EXAMINATION: VITAL SIGNS: His temperature is 97.5, pulse is 78, 114/69 blood pressure, 20 respiratory rate, 95% O2 sat on room air. HEAD: Atraumatic, normocephalic. HEART: Regular rate. LUNGS: Decreased breath sounds. ABDOMEN: Soft. EXTREMITIES: Contracted little bit, that is his baseline. His left first toe has got an ulcer on it. LABORATORY DATA: There is an MRI pending. He has a 4.3 white count, 13.3 hemoglobin, 40.8 hematocrit with 210 platelets. He has a 139 sodium, potassium 3.9, BUN 26, creatinine 1.8, which is getting better with IV fluids. GFR is 37, sugar is 67, calcium 9.1, total bili is 0.6, AST is 28, ALT is 13, alk phos 55, total protein is 7.4. TSH is 3.67. ASSESSMENT AND PLAN: He is being seen by Cardiology, Endocrinology, Podiatry. He has cellulitis of the lower extremity, diabetes, hypertension, high cholesterol, renal insufficiency, visual disability. He was sent in by Podiatry, they put him in after seeing on house call. We will continue with IV antibiotics. MRI is pending. They will let us know if it is an osteomyelitis with the length of time of IV antibiotics. We will see what the Infectious Disease has to say. Continue with aggressive treatment and care. Diomedes Lopes DO
--- NOTE | 2018-09-21 13:13 | CARD ---
APPROVED REPORT Date of service: 09/21/2018 EXAM: Two-dimensional and M-mode echocardiogram with Doppler and color Doppler. INDICATION Cardiac Disease: CAD 2D DIMENSIONS Left Atrium (2D)3.8 (1.6-4.0cm)IVSd1.1 (0.7-1.1cm) LVDd3.4 (3.9-5.9cm)PWd0.9 (0.7-1.1cm) LVDs2.3 (2.5-4.0cm)FS (%) 33.5 % LVEF (%)63.5 (>50%) M-Mode DIMENSIONS Aortic Root3.40 (2.2-3.7cm)Aortic Cusp Exc.1.60 (1.5-2.0cm) Aortic Valve AoV Peak Hbhkvprm268.0cm/Zander Peak GR.4mmHg Mitral Valve MV E Lmhsfzmr45.9cm/sMV A Hvkxztqk057.0cm/sE/A ratio0.6 TDI E/Lateral E'0.0E/Medial E'0.0 Tricuspid Valve TR Peak [id number] [id number] Peak Gr.19mmHg [id number] LEFT VENTRICLE The left ventricular function is normal. The left ventricular ejection fraction is within the normal range. RIGHT VENTRICLE The right ventricle is normal size. ATRIA The left atrium is mildly dilated. The right atrium size is normal. AORTIC VALVE The aortic valve is thickened but opens well. MITRAL VALVE The mitral valve is thickened but opens well. TRICUSPID VALVE The tricuspid valve leaflets are thickened , but open well. There is trace to mild tricuspid regurgitation. There is no pulmonary hypertension. PULMONIC VALVE The pulmonic valve is not well visualized. PERICARDIAL EFFUSION There is no pericardial effusion. <Conclusion> Limited study Good LV function Dilated LA Mild TR No pulmonary hypertension
--- NOTE | 2018-09-21 13:46 | PN ---
DATE: 09/21/2018 SUBJECTIVE: The patient is without distress. OBJECTIVE: VITAL SIGNS: Blood pressure 110/60, heart rates in the 70s. NECK: Negative JVD. LUNGS: Without rales. HEART: S1 and S2. EXTREMITIES: Without edema. LABORATORY DATA: Hemoglobin 13.3. BUN and creatinine is unchanged. Echocardiogram is pending. IMPRESSION: 1. Cellulitis. 2. Hypertension. 3. Diabetes mellitus. 4. Hypercholesterolemia. 5. Renal insufficiency. 6. Visual disability. PLAN: Given these findings, we will review the echocardiogram, I do not suspect any active cardiac disease. Augusto Rodriguez MD
[2018-09-21 16:20] VITALS: BP 114/69
[2018-09-21] MEDS ORDERED: Amoxicillin-Clav 875-125 mg Tab PO SCH (22:00)
--- NOTE | 2018-09-22 00:54 | PN ---
DATE: 09/21/2018 SUBJECTIVE: The patient is in bed, in no acute distress. The patient was seen earlier this morning in room 368 in bed, no acute distress. PHYSICAL EXAMINATION: VITAL SIGNS: Temperature of 97, blood pressure is 114/60, respiratory rate of 18. HEENT: Unremarkable. NECK: Supple. LUNGS: Decreased breath sounds. HEART: Normal S1 and S2. ABDOMEN: Soft. LABORATORY DATA: Reveals the white count is noted at 4.3, hemoglobin of 13, BUN of 26, and creatinine of 1.8. FMI of the foot is reported to be negative for osteomyelitis. ASSESSMENT AND PLAN: This is a 78-year-old male with past medical history significant for diabetes and diabetic neuropathy, hypertension, cerebrovascular accident. Admitted with a left torn dorsal abrasion and cellulitis, which has resolved. May be able to complete the therapy with p.o. antibiotics. Larry Rizo MD
--- NOTE | 2018-09-22 02:01 | PN ---
DATE: 09/21/2018 ENDOCRINOLOGY FOLLOWUP NOTE LOCATION: In room 368. SUBJECTIVE: This is a 78-year-old male with left hallux infection and underlying cellulitis and currently receiving IV antibiotic management and is being referred now for also further diabetic and thyroid management as noted. His glycemic levels were actually low normal today as noted and the glucose levels have ranged from 67 to 75 mg/dL. His A1c is 6.8%, which is indicative of near optimal metabolic control of his diabetic condition even prior to this admission. LABORATORY DATA: Chemistries showed BUN of 26, sodium 139, potassium 3.9, chloride 102, CO2 of 30, glucose 66, and creatinine 1.8. His A1c is near optimal at 6.8% as noted. His repeat thyroid study showed T4 of 9.1 with TSH of 3.67, which is actually lower than the initial TSH of 3.90 with free T4 of 1.54. ASSESSMENT: This is a 78-year-old male with type 2 diabetes, hypertension with new optimal metabolic control of his diabetic condition with very low dose oral hypoglycemic therapy as given. Moreover, he also has diabetic left hallux with neuropathic ulceration . 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 PLAN OF MANAGEMENT: We will hold off levothyroxine replacement therapy not only because of subclinical thyroid indices as noted, which is quite common in this age category, but also because of the for subclinical hypothyroidism in elderly with normal thyroid studies accordingly. We will obtain serial chemistries and supplement accordingly as needed. We will obtain thyroid peroxidase and thyroglobulin antibody to confirm and/or indicate the presence of underlying thyroid autoimmunity. We will hold off levothyroxine replacement therapy at this time, however. We will follow. Ginette Asif MD
== END 2018-09-21 18:40 | disposition home health service (06) | DRG 603 ==
LOC: ED 00:02 → ERH 03:04 → 3RNO 04:37 → OBSVTOIN 08:58
PROVIDERS: ADMIT Family Medicine; ATTEND Family Medicine
DX: L03.032 Cellulitis of left toe (principal); E11.621 Type 2 diabetes mellitus with foot ulcer; L97.529 Non-pressure chronic ulcer of other part of left foot with unspecified severity; E11.42 Type 2 diabetes mellitus with diabetic polyneuropathy; E11.51 Type 2 diabetes mellitus with diabetic peripheral angiopathy without gangrene; E11.21 Type 2 diabetes mellitus with diabetic nephropathy; E11.22 Type 2 diabetes mellitus with diabetic chronic kidney disease; I12.9 Hypertensive chronic kidney disease with stage 1 through stage 4 chronic kidney disease, or unspecified chronic kidney disease; N18.9 Chronic kidney disease, unspecified; E11.319 Type 2 diabetes mellitus with unspecified diabetic retinopathy without macular edema; I25.10 Atherosclerotic heart disease of native coronary artery without angina pectoris; E78.00 Pure hypercholesterolemia, unspecified; M24.541 Contracture, right hand; E06.3 Autoimmune thyroiditis; E78.5 Hyperlipidemia, unspecified; H54.61 Unqualified visual loss, right eye, normal vision left eye; Z79.84 Long term (current) use of oral hypoglycemic drugs; Z86.73 Personal history of transient ischemic attack (TIA), and cerebral infarction without residual deficits; Z85.46 Personal history of malignant neoplasm of prostate